=== PATIENT | female | born 1960 ===

== ENCOUNTER 2018-12-10 12:48 | Emergency (ER) | payer SELFPAY ==
[2018-12-10] MEDS ORDERED: Amoxicillin-Clav 875-125 mg Tab PO STA (13:35)
[2018-12-10] MEDS ORDERED: Amoxicillin-Clav 875-125 mg Tab PO ONE (13:48)
--- NOTE | 2018-12-10 14:11 | ED PDOC ---
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 In addition, the patient states she had been experiencing a nosebleed over night that would come and go. She reports it finally seems to have stopped. She applied pressure. Patient states she has been taking Naproxen for her back problems which has not helped with her headache. Denies fever, chills, chest pain, difficulty breathing, recent travel or known sick contacts PCP: [facility] Past Medical History Reviewed: Historical Data, Nursing Documentation, Vital Signs Vital Signs: Last Vital Signs Temp 97.8 F 12/10/18 12:59 Pulse 95 H 12/10/18 12:59 Resp 16 12/10/18 12:59 BP 135/70 12/10/18 12:59 Pulse Ox 98 12/10/18 12:59 - Medical History PMH: Arthritis, Back Problems, Diabetes Denies: Chronic Kidney Disease - Surgical History Surgical History: No Surg Hx - Family History Family History: States: Unknown Family Hx - Home Medications Home Medications: Ambulatory Orders Medication Instructions Recorded Acetaminophen [8 Hour] 650 mg PO Q8 PRN #20 tablet.er 12/10/18 Amoxicillin/Clavulanate [Augmentin 1 tab PO BID 10 Days #20 tab 12/10/18 875 MG-125 MG] Fluticasone Nasal [Flonase] 1 spr NS Q6 PRN #1 bottle 12/10/18 - Allergies Allergies/Adverse Reactions: Allergies Allergy/AdvReac Type Severity Reaction Status Date / Time No Known Allergies Allergy Verified 10/11/15 08:25 Review of Systems ROS Statement: Except As Marked, All Systems Reviewed And Found Negative Constitutional: Negative for: Fever ENT: Positive for: Nose Pain, Nose Discharge (Bleeding), Nose Congestion Respiratory: Positive for: Cough. Negative for: Sputum Neurological: Positive for: Headache Physical Exam - Reviewed Nursing Documentation Reviewed: Yes Vital Signs Reviewed: Yes - Physical Exam Comments: GENERAL APPEARANCE: Patient is awake, alert, oriented x 3, in no acute distress. SKIN: Warm, dry; (-) cyanosis, (-) rash. HEAD: (+) bilateral Frontal and maxillary tenderness. EYES: (-) conjunctival pallor, (-) scleral icterus, (-) conjunctival hemorrhage. ENMT: Mucous membranes moist. TMs: (+) fluid bilaterally, (-) erythema. Airway patent: (-) stridor. Pharynx: (-) erythema, (-) exudate. Nares: (-) active bleeding or visualized areas of blood (+) audible nasal congestion NECK: (-) tenderness, (-) stiffness, (-) meningismus, (-) lymphadenopathy. HEART: Regular rate and rhythm; (-) murmur. LUNGS: Clear to auscultation bilateral; (-) respiratory distress. ABDOMEN AND GI: Soft; (-) tenderness, (-) guarding; (-) organomegaly; (-) mass; (-) CVA tenderness. EXTREMITIES: (-) deformity; (-) cellulitis, (-) lymphangitis; (-) subungual hemorrhage; (-) edema. NEURO AND PSYCH: Mental status as above; (-) focal findings. - ECG O2 Sat by Pulse Oximetry: 98 (RA) Pulse Ox Interpretation: Normal Medical Decision Making Medical Decision Making: Time: 1335 Impression: Chronic sinusitis Plan: Augmentin 1 tab PO Tylenol 650 mg PO Patient will be given prescription for antibiotic, nasal spray and Tylenol. Patient advised to hold pressure on nose for 15-20 mins if another nose bleed occurs on re eval pt is feeling better discussed results diagnosis, treatment, return precautions and f/u with pt who is understanding, in agreement and stable for dc Scribe Attestation: Documented by Ricci Pineda, acting as a scribe for Oleksandr Saldivar PA-C Provider Scribe Attestation: All medical record entries made by the Scribe were at my direction and personally dictated by me. I have reviewed the chart and agree that the record accurately reflects my personal performance of the history, physical exam, medical decision making, and the department course for this patient. I have also personally directed, reviewed, and agree with the discharge instructions and disposition. Disposition - Clinical Impression Clinical Impression: Sinusitis - Patient ED Disposition Is Patient to be Admitted: No Counseled Patient/Family Regarding: Studies Performed, Diagnosis, Need For Followup, Rx Given - Disposition Referrals: your, doctor [Other] [facility] [Outside] Disposition: Routine/Home Disposition Time: 14:30 Condition: STABLE Additional Instructions: Ridge antibiticos segn lo prescrito hasta terminar. Ridge los medicamentos segn lo prescrito para ayudar con los sntomas. Maisha por dejarnos cuidar de ti hoy. Usted fue tratado por sinusitis. La atencin mdica de emergencia que recibi hoy se dirigi a juju sntomas agudos. Si le recetaron algn medicamento, llnelo y tmelo segn las indicaciones. Los sntomas pueden tardar varios sharma en resolverse. Regrese al Departamento de Emergencias si juju sntomas empeoran, no mejoran o si tiene otros problemas. Comunquese con knott mdico dentro de 2 sharma para stacey nueva evaluacin y jodie un seguimiento o llame a xin de los mdicos / clnicas a los que temple sido referido y que figuran en el formulario de Informacin de visita al paciente que se incluye en knott paquete de ramón. Lleve todos los documentos que le entregaron al momento del ramón junto con todos los medicamentos que est tomando para knott visita de seguimiento. Nuestro tratamiento no puede reemplazar la atencin mdica continua por parte de un proveedor de atencin primaria (PCP) fuera del departamento de emergencias. Prescriptions: Acetaminophen [8 Hour] 650 mg PO Q8 PRN #20 tablet.er PRN Reason: Pain, Moderate (4-7) Amoxicillin/Clavulanate [Augmentin 875 MG-125 MG] 1 tab PO BID 10 Days #20 tab Fluticasone Nasal [Flonase] 1 spr NS Q6 PRN #1 bottle PRN Reason: Nasal Congestion Instructions: Sinusitis, Adult (DC), Sinus Headache (DC) Forms: [facility] (Lao), [facility] ED School/Work Excuse Print Language: KHMER - POA Present On Arrival: None
[2018-12-10 14:25] VITALS: BP 122/78; PULSE 78; RESP 18; TEMP 98
[2018-12-10 14:42] VITALS: O2SAT 98
== END 2018-12-10 14:22 | disposition home or self-care (01) ==
LOC: H.ER 12:48
DX: J32.9 Chronic sinusitis, unspecified (principal); E11.9 Type 2 diabetes mellitus without complications; M19.90 Unspecified osteoarthritis, unspecified site; R04.0 Epistaxis